=== PATIENT | female | born 2000 | race Caucasian/White ===

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

== ENCOUNTER 2021-02-19 05:45 | Emergency (ER) | payer OTHER ==
[~2021-02-19] VITALS: Ht 165.1 cm; Wt 72.6 kg
[2021-02-19 06:28] LABS: BASOPHILS ABSOLUTE AUTO 0.05 K/mm3 (0.00-0.23); BASOPHILS PERCENT AUTO 0 % (0-2); EOSINOPHILS ABSOLUTE AUTO 0.41 K/mm3 (0.00-0.68); EOSINOPHILS PERCENT AUTO 3 % (0-6); Hematocrit 36.3 % (33.0-51.0); Hemoglobin 12.7 g/dL (11.5-16.0); IMMATURE GRAN ABSOLUTE AUTO 0.06 K/mm3 (0.00-0.10); IMMATURE GRAN PERCENT AUTO 0 % (0-1); LYMPHOCYTES ABSOLUTE AUTO 4.28 K/mm3 (0.84-5.20); LYMPHOCYTES PERCENT AUTO 26 % (21-46); MONOCYTES ABSOLUTE AUTO 0.96 K/mm3 (0.16-1.47); MONOCYTES PERCENT AUTO 6 % (4-13); Mean Corpuscular Volume 86 fL (80-100); Mean Platelet Volume 10.2 fL (9.1-12.4); NEUTROPHILS PERCENT AUTO 65 % (41-73); Platelet Count 357 K/mm3 (150-400); RDW Coefficient Variation 13.4 % (11.7-14.2); RDW Standard Deviation 41.5 fL (35.1-46.3); Red Blood Cell Count 4.23 M/mm3 (3.80-5.20); White Blood Cell Count 16.36 K/mm3 (4.00-11.30)
[2021-02-19 06:38] LABS: Anion Gap 7 mmol/L (6-16); Blood Urea Nitrogen 6 mg/dL (8-21); CO2, Blood 22 mmol/L (21-32); Calcium, Blood 8.6 mg/dL (8.5-10.1); Chloride, Blood 111 mmol/L (98-108); Creatinine, Blood 0.46 mg/dL (0.40-1.00); Glomerular Filtration Rate >60 (60-); Glucose, Blood 88 mg/dL (70-99); Potassium, Blood 3.8 mmol/L (3.5-5.5); Sodium, Blood 140 mmol/L (136-145)
[2021-02-19] MEDS ORDERED: HYDR1TAB94 PO (08:11)
[2021-02-19] MEDS ORDERED: PRENATAL TABLE1 EAC2 PO (13:52)
== END 2021-02-19 08:34 | disposition home or self-care (01) ==
LOC: ER 05:45
PROVIDERS: Emergency Medicine
DX: O03.9 Complete or unspecified spontaneous abortion without complication (principal); F17.210 Nicotine dependence, cigarettes, uncomplicated; Z88.0 Allergy status to penicillin; Z79.899 Other long term (current) drug therapy
CPT/HCPCS: 51701; 76801; 80048; 84703; 85025; 96374; 96375; 99284-25; J2250; J2405; J3010; J7120

== ENCOUNTER 2021-02-19 11:42 | Observation (INO) | payer OTHER ==
[~2021-02-19] VITALS: Ht 154.9 cm; Wt 74.8 kg
== END 2021-02-19 18:53 | disposition home or self-care (01) ==
LOC: ER 11:42 → ERHOLD 11:43 → SURS 13:41 → ER 13:41 → ERHOLD 13:41 → SURS 17:27 → ERHOLD 17:27 → SURS 18:53
PROVIDERS: ADMIT Obstetrics & Gynecology
PROC: 10D17ZZ Extraction of Products of Conception, Retained, Via Natural or Artificial Opening (ICD-10-PCS; principal; 2021-02-19)
DX: O03.9 Complete or unspecified spontaneous abortion without complication (principal); F41.9 Anxiety disorder, unspecified; F17.210 Nicotine dependence, cigarettes, uncomplicated; Z20.822 Contact with and (suspected) exposure to COVID-19
CPT/HCPCS: 0241U; 36415; 80047; 84702; 85014; 88305; 96374; 96375; 99284-25; J0690; J1100; J1885; J2210; J2270; J2370; J2405; J2704; J3010; J7030

== ENCOUNTER 2021-09-29 21:13 | Emergency (ER) | payer SELFPAY ==
[~2021-09-29] VITALS: Ht 154.9 cm; Wt 72.6 kg
[~2021-09-29 21:13] MED LIST changes: +HYDR1TAB94 PO; +PRENATAL TABLE1 EAC2 PO
[2021-09-29 21:54] LABS: BASOPHILS ABSOLUTE AUTO 0.09 K/mm3 (0.00-0.23); BASOPHILS PERCENT AUTO 1 % (0-2); EOSINOPHILS ABSOLUTE AUTO 0.36 K/mm3 (0.00-0.68); EOSINOPHILS PERCENT AUTO 2 % (0-6); Hematocrit 36.8 % (33.0-51.0); Hemoglobin 12.6 g/dL (11.5-16.0); IMMATURE GRAN ABSOLUTE AUTO 0.06 K/mm3 (0.00-0.10); IMMATURE GRAN PERCENT AUTO 0 % (0-1); LYMPHOCYTES ABSOLUTE AUTO 3.88 K/mm3 (0.84-5.20); LYMPHOCYTES PERCENT AUTO 23 % (21-46); MONOCYTES ABSOLUTE AUTO 1.54 K/mm3 (0.16-1.47); MONOCYTES PERCENT AUTO 9 % (4-13); Mean Corpuscular HGB Conc 34.2 g/dL (31.5-36.5); Mean Corpuscular Volume 85 fL (80-100); Mean Platelet Volume 9.7 fL (9.1-12.4); NEUTROPHILS PERCENT AUTO 65 % (41-73); Platelet Count 381 K/mm3 (150-400); RDW Coefficient Variation 14.3 % (11.7-14.2); RDW Standard Deviation 44.5 fL (35.1-46.3); Red Blood Cell Count 4.34 M/mm3 (3.80-5.20); White Blood Cell Count 16.73 K/mm3 (4.00-11.30)
[2021-09-29 22:19] LABS: Alanine Aminotransfer (ALT/SGP 18 U/L (12-78); Albumin/Globulin Ratio 0.8 (0.8-1.8); Alk Phos 82 U/L (50-136); Anion Gap 5 mmol/L (6-16); Aspartate Aminotrans (AST/SGOT 13 U/L (12-37); Bilirubin, Total 0.2 mg/dL (0.1-1.0); Blood Urea Nitrogen 9 mg/dL (8-24); Bun/Creatinine Ratio 13.6 (12.0-20.0); CO2, Blood 24 mmol/L (21-32); Calcium, Blood 8.2 mg/dL (8.5-10.1); Chloride, Blood 113 mmol/L (98-108); Creatinine, Blood 0.66 mg/dL (0.40-1.00); Globulin, Blood 3.7 g/dL (2.2-4.0); Glomerular Filtration Rate >60 (60-); Glucose, Blood 90 mg/dL (70-99); Potassium, Blood 3.5 mmol/L (3.5-5.5); Sodium, Blood 142 mmol/L (136-145); Total Protein, Blood 6.7 g/dL (6.4-8.2)
[2021-09-29 23:21] LABS: Source, Urine Clean Catch
[2021-09-29 23:33] LABS: Appearance, Urine Clear (Clear); Bilirubin, Urine Neg (Neg); Blood, Urine Neg (Neg); Color, Urine Yellow (P-Yellow); Glucose Qualitative, Urine Neg (Neg); Ketones, Urine Neg (Neg); Leukocyte Esterase, Urine Neg (Neg); Nitrite, Urine Neg (Neg); Protein, Urine 1+ (Neg); Specific Gravity, Urine 1.025 (1.003-1.022); Urobilinogen, Urine NORM (Normal)
[2021-09-29] MEDS ORDERED: SULTRIDS PO (23:54)
== END 2021-09-30 00:12 | disposition home or self-care (01) ==
LOC: ER 21:13
PROVIDERS: Physician Assistant
DX: N39.0 Urinary tract infection, site not specified (principal); Z88.0 Allergy status to penicillin; Z88.8 Allergy status to other drugs, medicaments and biological substances; Z79.899 Other long term (current) drug therapy
CPT/HCPCS: 36415; 80053; 81025; 85025; 99284; A9270

== ENCOUNTER → 2021-10-14 | Outpatient (CLI) | payer SELFPAY ==
[~2021-10-14] MED LIST changes: +SULTRIDS PO
== END | disposition home or self-care (01) ==
LOC: LAB SHORT 18:37
DX: N39.0 Urinary tract infection, site not specified (principal)
CPT/HCPCS: 87086

== ENCOUNTER 2022-01-30 23:38 | Emergency (ER) | payer OTHER ==
[~2022-01-30] VITALS: Ht 154.9 cm; Wt 72.6 kg
== END 2022-01-31 00:16 | disposition home or self-care (01) ==
LOC: ER 23:38
DX: S00.01XA Abrasion of scalp, initial encounter (principal); F17.200 Nicotine dependence, unspecified, uncomplicated; W01.0XXA Fall on same level from slipping, tripping and stumbling without subsequent striking against object, initial encounter
CPT/HCPCS: 99283

== ENCOUNTER 2023-07-06 19:03 | Inpatient (IN) | payer OTHER ==
[~2023-07-06] VITALS: Ht 157.5 cm; Wt 96.8 kg
[2023-07-06] VITALS (7 sets, daily range): BP systolic 105–128; BP diastolic 57–77
[2023-07-06 19:51] LABS: BASOPHILS ABSOLUTE AUTO 0.04 K/mm3 (0.00-0.23); BASOPHILS PERCENT AUTO 0 % (0-2); EOSINOPHILS ABSOLUTE AUTO 0.06 K/mm3 (0.00-0.68); EOSINOPHILS PERCENT AUTO 0 % (0-6); Hematocrit 33.2 % (33.0-51.0); Hemoglobin 11.7 g/dL (11.5-16.0); IMMATURE GRAN ABSOLUTE AUTO 0.09 K/mm3 (0.00-0.10); IMMATURE GRAN PERCENT AUTO 1 % (0-1); LYMPHOCYTES ABSOLUTE AUTO 2.12 K/mm3 (0.84-5.20); LYMPHOCYTES PERCENT AUTO 12 % (21-46); MONOCYTES ABSOLUTE AUTO 1.08 K/mm3 (0.16-1.47); MONOCYTES PERCENT AUTO 6 % (4-13); Mean Corpuscular HGB 29.7 pg (26.0-34.0); Mean Corpuscular HGB Conc 35.2 g/dL (31.5-36.5); Mean Corpuscular Volume 84 fL (80-100); Mean Platelet Volume 11.3 fL (9.1-12.4); NEUTROPHILS ABSOLUTE AUTO 14.77 K/mm3 (1.96-9.15); NEUTROPHILS PERCENT AUTO 81 % (41-73); Platelet Count 323 K/mm3 (150-400); RDW Coefficient Variation 12.1 % (11.7-14.2); RDW Standard Deviation 37.1 fL (35.1-46.3); Red Blood Cell Count 3.94 M/mm3 (3.80-5.20); White Blood Cell Count 18.16 K/mm3 (4.00-11.30)
[2023-07-07] VITALS (14 sets, daily range): BP systolic 106–142; BP diastolic 58–98
--- NOTE | 2023-07-07 15:05 | NUR ---
Assumed care from Ricardo Faith RN
--- NOTE | 2023-07-07 15:45 | NUR ---
Spoke with pt about bringing in breast pump if able. Denies other needs at this time.
[2023-07-08 08:47] VITALS: BP 145/91
[2023-07-08 10:46] VITALS: BP 123/60
[2023-07-08 13:04] VITALS: BP 144/93
[2023-07-08] MEDS ORDERED: IBUP800 PO (17:24)
[2023-07-08 18:23] VITALS: BP 144/76
[2023-07-08 19:21] VITALS: BP 139/82
--- NOTE | 2023-07-08 22:52 | NUR ---
PATIENT COMPLETED THE [place] DEPRESSION SCALE THIS EVENING. UPON SEEING THAT THE PATIENT'S TOTAL SCORE WAS 14, I CALLED CASSIDY MORE CNM WHO WOULD LIKE TO CANCEL THE DISCHARGE TO BO[facility] ORDER FOR TODAY AND KEEP PATIENT INPATIENT. SHE WOULD LIKE A [employer]ART ENER[employer] SPECIALIST TO SPEAK WITH PT IN THE MORNING. DISCUSSED THIS WITH PATIENT IN DETAIL. SHE REPORTS THAT SHE HAS NO SUICIDAL IDEATION AND FEELS "OKAY, JUST OVERWHELMED WITH EVERYTHING HAPPENING WITH MY BABY." SHE REPORTS THAT SHE HAS HAD A LONGTIME HISTORY OF WHAT SHE FEELS IS DEPRESSION, BUT SHE HAS NEVER SPOKEN WITH A DOCTOR OR COUNSELOR ABOUT IT. DISCUSSED POST- DEPRESSION WITH HER AND WHAT RESOURCES WE HAVE, WELL THE IMPORTANCE OF FOLLOWING UP WITH CASSIDY AFTER HER DISCHARGE FROM THE HOSPITAL. THE PATIENT IS AGREEABLE TO STAY INPATIENT, HER CHILD REMAINS IN THE NURSERY.
[2023-07-09 05:19] VITALS: BP 141/73
[2023-07-09 08:28] VITALS: BP 140/76
[2023-07-09 11:46] VITALS: BP 130/73
[2023-07-09 15:22] VITALS: BP 144/89
== END 2023-07-09 19:35 | disposition home or self-care (01) | DRG 807 ==
LOC: OBS 19:03 → BC 19:22
PROVIDERS: ADMIT Advanced Practice Midwife
PROC: 10E0XZZ Delivery of Products of Conception, External Approach (ICD-10-PCS; principal; 2023-07-07)
DX: O99.324 Drug use complicating childbirth (principal); Z37.0 Single live birth; O76 Abnormality in fetal heart rate and rhythm complicating labor and delivery; Z3A.39 39 weeks gestation of pregnancy; F12.10 Cannabis abuse, uncomplicated
CPT/HCPCS: 36415; 85025; 86850; 86900; 86901; A9270; J2405; J2590; J3010

== ENCOUNTER → 2024-09-12 | Outpatient (CLI) | payer OTHER ==
[~2024-09-12] MED LIST changes: +IBUP800 PO
== END | disposition home or self-care (01) ==
LOC: LAB 15:36 → LAB SHORT 15:36
DX: O09.90 Supervision of high risk pregnancy, unspecified, unspecified trimester (principal)
CPT/HCPCS: 87081; 87150

== ENCOUNTER → 2024-11-16 | Outpatient (CLI) | payer OTHER ==
[2024-11-16 10:57] LABS: BASOPHILS ABSOLUTE AUTO 0.05 K/mm3 (0.00-0.23); BASOPHILS PERCENT AUTO 0 % (0-2); EOSINOPHILS PERCENT AUTO 1 % (0-6); Hematocrit 38.1 % (33.0-51.0); Hemoglobin 12.9 g/dL (11.5-16.0); IMMATURE GRAN ABSOLUTE AUTO 0.05 K/mm3 (0.00-0.10); IMMATURE GRAN PERCENT AUTO 0 % (0-1); LYMPHOCYTES ABSOLUTE AUTO 1.77 K/mm3 (0.84-5.20); LYMPHOCYTES PERCENT AUTO 13 % (21-46); MONOCYTES ABSOLUTE AUTO 0.68 K/mm3 (0.16-1.47); MONOCYTES PERCENT AUTO 5 % (4-13); Mean Corpuscular HGB 28.8 pg (26.0-34.0); Mean Corpuscular HGB Conc 33.9 g/dL (31.5-36.5); Mean Corpuscular Volume 85 fL (80-100); Mean Platelet Volume 9.6 fL (9.1-12.4); NEUTROPHILS ABSOLUTE AUTO 11.36 K/mm3 (1.96-9.15); NEUTROPHILS PERCENT AUTO 81 % (41-73); Platelet Count 401 K/mm3 (150-400); RDW Coefficient Variation 13.4 % (11.7-14.2); RDW Standard Deviation 41.4 fL (35.1-46.3); Red Blood Cell Count 4.48 M/mm3 (3.80-5.20); White Blood Cell Count 14.11 K/mm3 (4.00-11.30)
[2024-11-16 11:06] LABS: Albumin, Blood 3.6 g/dL (3.4-5.0); Albumin/Globulin Ratio 0.9 (0.8-1.8); Bilirubin, Total 0.2 mg/dL (0.1-1.0); Bun/Creatinine Ratio 15.8 (12.0-20.0); Calcium, Blood 8.9 mg/dL (8.5-10.1); Creatinine, Blood 0.76 mg/dL (0.40-1.00); Potassium, Blood 4.2 mmol/L (3.5-5.5); Total Protein, Blood 7.6 g/dL (6.4-8.2)
== END ==
LOC: LAB 10:50 → LAB SHORT 10:50
DX: N39.0 Urinary tract infection, site not specified (principal); R10.9 Unspecified abdominal pain; Z32.01 Encounter for pregnancy test, result positive
CPT/HCPCS: 80053; 84702; 85025; 87086

== ENCOUNTER → 2025-01-14 | Outpatient (CLI) | payer OTHER ==
[2025-01-14 18:53] LABS: Candida glabrata-krusei, PCR NOT DETECTED (NOT DETECT)
[2025-01-14 19:24] LABS: Chlamydia Trachomatis Vaginal NOT DETECTED (NOT DETECT); Neisseria Gonorrhoea Vaginal NOT DETECTED (NOT DETECT)
[2025-01-14 20:01] LABS: Bacterial Vaginosis PCR Positive (NEGATIVE); Candida Group, PCR DETECTED (NOT DETECT)
[2025-01-17 11:54] LABS: HIV 1,2 COMBO ANTIGEN/ANTIBODY Negative (Negative)
[2025-01-18 13:26] LABS: HSV 1 SUBTYPE BY PCR Detected; HSV 2 SUBTYPE BY PCR Not Detected; HSV SUBTYPE SOURCE LABIA
== END ==
LOC: LAB SHORT 11:57 → LAB 11:57
PROVIDERS: Family Medicine
DX: N89.8 Other specified noninflammatory disorders of vagina (principal)
CPT/HCPCS: 81515; 86592; 87389; 87491; 87529; 87591